=== PATIENT | female | born 1945 | race Caucasian/White ===

== ENCOUNTER → 2018-04-09 | Outpatient (CLI) | payer MEDICARE, OTHER ==
[~2018-04-09] MED LIST: ASPI81CH PO; BETA PO; BIOCEL TABLET1 EACH PO; CALCAVITDA PO; FURO20 PO; FURO40 PO; GLIM2 PO; GLIM4 PO; GLUC500 PO; Glimepiride1 MG PO; HYDR1TAB94 PO; LEVSOD100 PO; LEVSOD125 PO; LORA10 PO; LOSA50 PO; LOSARTAN POTAS100 MG PO; MAGOXI400 PO; METANX CAPSULE1 EACH PO; METF500 PO; MOMENI; NITR.4SL SL; POTA10T PO; POTCHL10ER PO; SIMV10 PO; TIMDOROPSO LEFTEYE; UBID100 PO; VIT C PO; VIT1CAPS12 PO; [UNRECOGNIZED DRUG - OTHER] PO
== END | disposition home or self-care (01) ==
LOC: LAB 17:34 → LAB SHORT 17:34
DX: L02.91 Cutaneous abscess, unspecified (principal)
CPT/HCPCS: 87070; 87075; 87186; 87205

== ENCOUNTER 2019-01-22 11:45 | Day surgery (SDC) | payer MEDICARE, OTHER ==
[~2019-01-22] VITALS: Ht 165.1 cm; Wt 99.6 kg
[~2019-01-22 11:45] MED LIST changes: +CALCIUM 500 +1 EAC3 PO; +Coenzyme Q1050 MG PO; +Fish Oil 10001000 MG PO; +LEVSOD112 PO; +LO-DOSE ASPIRIN81 MG PO; +MIRALAX17 GM PO; +MULTI VITAMIN1 EACH PO; +ROSU5 PO
== END 2019-01-22 14:41 | disposition home or self-care (01) ==
LOC: ORSCSDS 11:45
PROVIDERS: Internal Medicine Gastroenterology
PROC: 0DBK8ZX Excision of Ascending Colon, Via Natural or Artificial Opening Endoscopic, Diagnostic (ICD-10-PCS; principal; 2019-01-22 13:00)
PROC: 0DB58ZX Excision of Esophagus, Via Natural or Artificial Opening Endoscopic, Diagnostic (ICD-10-PCS; principal; 2019-01-22 13:00)
PROC: 0DB68ZX Excision of Stomach, Via Natural or Artificial Opening Endoscopic, Diagnostic (ICD-10-PCS; principal; 2019-01-22 13:00)
PROC: 0D758ZZ Dilation of Esophagus, Via Natural or Artificial Opening Endoscopic (ICD-10-PCS; principal; 2019-01-22 13:00)
PROC: 0DBM8ZX Excision of Descending Colon, Via Natural or Artificial Opening Endoscopic, Diagnostic (ICD-10-PCS; principal; 2019-01-22 13:00)
DX: Z12.11 Encounter for screening for malignant neoplasm of colon (principal); Z80.0 Family history of malignant neoplasm of digestive organs; D12.4 Benign neoplasm of descending colon; D12.2 Benign neoplasm of ascending colon; K57.30 Diverticulosis of large intestine without perforation or abscess without bleeding; K59.00 Constipation, unspecified; R13.14 Dysphagia, pharyngoesophageal phase; K29.70 Gastritis, unspecified, without bleeding; K22.2 Esophageal obstruction; R68.81 Early satiety; G47.30 Sleep apnea, unspecified; E66.01 Morbid (severe) obesity due to excess calories; Z68.38 Body mass index [BMI] 38.0-38.9, adult; E11.9 Type 2 diabetes mellitus without complications; I10 Essential (primary) hypertension; Z68.36 Body mass index [BMI] 36.0-36.9, adult; Z79.899 Other long term (current) drug therapy; Z79.82 Long term (current) use of aspirin
CPT/HCPCS: 82947; 87081; 88305; 88342; J2704; J7120

== ENCOUNTER → 2019-09-14 | Outpatient (CLI) | payer MEDICARE, OTHER | END | disposition home or self-care (01) | LOC: PLD 08:01 → LAB SHORT 08:01 | DX: L57.0 Actinic keratosis (principal) | CPT/HCPCS: 88305 ==

== ENCOUNTER → 2020-04-05 | Outpatient (CLI) | payer MEDICARE, OTHER | END | disposition home or self-care (01) | LOC: LAB SHORT 09:15 → PLD 09:15 | DX: D04.39 Carcinoma in situ of skin of other parts of face (principal) | CPT/HCPCS: 88305 ==

== ENCOUNTER → 2023-03-10 | Outpatient (CLI) | payer MEDICARE, OTHER | END | disposition home or self-care (01) | LOC: LAB SHORT 14:23 → LAB 14:23 | DX: R30.0 Dysuria (principal) | CPT/HCPCS: 87077; 87086; 87186 ==

== ENCOUNTER → 2023-09-09 | Outpatient (CLI) | payer MEDICARE, OTHER | LOC: PLD 08:04 → LAB SHORT 08:04 | DX: R23.4 Changes in skin texture (principal) | CPT/HCPCS: 88305 ==

== ENCOUNTER → 2024-08-23 | Outpatient (CLI) | payer MEDICARE, OTHER | LOC: LAB 19:10 → LAB SHORT 19:10 | DX: R35.0 Frequency of micturition (principal) | CPT/HCPCS: 87077; 87086; 87186 ==

== ENCOUNTER → 2024-11-10 | Outpatient (CLI) | payer MEDICARE, OTHER ==
[2024-11-10 16:01] LABS: Bun/Creatinine Ratio 15.1 (12.0-20.0); Calcium, Blood 8.7 mg/dL (8.5-10.1); Creatinine, Blood 0.66 mg/dL (0.40-1.00); Potassium, Blood 3.8 mmol/L (3.5-5.5)
[2024-11-10 17:32] LABS: Creatinine, Urine Random 54.5 mg/dL (27.00-270.00); Microalb/Creat Ratio UR, Rand 10.55 mg/g (0.000-30.000); Microalbumin, Random Urine 5.75 mg/L (0.000-20.000)
== END ==
LOC: LAB SHORT 13:57 → LAB 13:57
PROVIDERS: Hospitalist
DX: E11.69 Type 2 diabetes mellitus with other specified complication (principal)
CPT/HCPCS: 80048; 82043; 82570; 83036

== ENCOUNTER → 2024-11-23 | Outpatient (CLI) | payer MEDICARE, OTHER | END | disposition home or self-care (01) | LOC: LAB 13:33 → LAB SHORT 13:33 | DX: R30.0 Dysuria (principal) | CPT/HCPCS: 87077; 87086; 87186 ==

== ENCOUNTER → 2024-12-01 | Outpatient (CLI) | payer MEDICARE, OTHER | LOC: LAB SHORT 13:59 → LAB 13:59 | DX: R30.0 Dysuria (principal) | CPT/HCPCS: 87077; 87086; 87186 ==